=== PATIENT | female | born 2005 | race Caucasian/White ===

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

== ENCOUNTER 2024-04-13 16:30 | Emergency (ER) | payer BC, SELFPAY ==
--- NOTE | 2024-04-13 16:32 | ED.ABDPAIN ---
HPI - Abdominal Pain General Chief Complaint: Abdominal Pain Stated Complaint: pains both sides of stomach Time Seen by Provider: 04/13/24 16:32 Source: patient Mode of arrival: ambulatory Limitations: no limitations History of Present Illness HPI narrative: Britta is a 18-year-old female presents to the clinic today with complaints of abdominal pain x1 day. She describes the pain as sharp and stabbing in the left lower quadrant. She in its to anorexia and bloating, but denies any associated nausea, vomiting, diarrhea, constipation, urinary symptoms, or flank pain. MD elicited complaint: abdominal pain Related Data Allergies Allergy/AdvReac Type Severity Reaction Status Date / Time Penicillins Allergy Severe Swelling Verified 04/13/24 16:34 of Lip/Tongue/Throat Review of Systems Review of Systems: Pertinent positives per HPI. Patient denies any rash, headache, visual changes, dizziness, cough, runny nose, sore throat, shortness of breath, chest pain, palpitations, nausea, vomiting, diarrhea, constipation, or any urinary issues. PMFSH Past Medical History Medical History Schizophrenia Surgical History Surgical History No pertinent past surgical history Social History Social History Substance use type: does not use Comments At the time of my signature, I reviewed and agree with the nursing past medical, surgical, social, and family history. There is no relevant family history pertinent to the patient complaint. Exam Narrative: General: Well-developed, obese, acutely ill-appearing Head: Normocephalic, atraumatic. Cardio: Regular rate and rhythm, s1 and s2 normal, no murmur appreciated. Resp: Clear to auscultation bilaterally, no rhonchi, rales, wheezing or rubs. Abdomen: Soft, pliable, bowel sounds present in all quadrants, tenderness to palpation in the RUQ, LUQ, and LLQ, no organomegly Course Course Emergency Course: Portions of this record may have been created with voice recognition software. Level of Care: Express Care Visit Vital Signs Vital signs: Vital signs reviewed Transfer Transfered to: [facility] Transportation: Other (private car) Transfer rationale: LUQ,LLQ,RUQ abdomen pain, low grade fever, decrease appetite. R/o appy/diverticulitis Accepting physician: Susannah CALLAHAN Transfer comments: private car MDM - Abdominal Pain MDM Narrative Medical decision making narrative: At the time of visit patient is resting comfortably on the exam table. Patient appears to be nontoxic. Plan: I suspect the patient has appendicitis vs. diverticulitis vs. abdominal abscess vs. ovarian cyst rupture. I will refer the patient to the emergency department. Contacted [facility] and spoke to LONDON Davalos and she accepts patient for transfer. Supportive measures were discussed with the patient and they voiced understanding discharge instructions and agrees to treatment plan. Differential Diagnosis Differential diagnosis: Likely abdominal pain, acute appendicitis, calculus of kidney, diverticulitis, endometriosis, gastroenteritis, pancreatitis and small bowel obstruction Discharge Plan Discharge Clinical Impression: Generalized abdominal pain Patient Disposition: Acute Care Hospital Condition: Stable Prescriptions: No Action ondansetron 4 mg tablet,disintegrating 4 mg PO Q8H PRN (Reason: nausea and vomiting) Qty: 8 0RF Follow-up/Referrals: PHYSICIAN,ELEMENT[employer]CHO[employer] LIBRARIAN [Primary Care Provider] - Time of Disposition: 16:59 Quality NIHSS Nursing Documentation ED NIHSS nursing documentation: reviewed/agree
[2024-04-13 16:44] VITALS: BP 136/95; PULSE 121; RESP 16; TEMP 37.8; O2SAT 99
== END 2024-04-13 16:59 | disposition short-term general hospital (02) ==
PROVIDERS: Emergency Provider Nurse Practitioner Family
DX: R10.84 Generalized abdominal pain (principal)
CPT/HCPCS: 99212; G0463

== ENCOUNTER 2024-04-13 17:17 | Emergency (ER) | payer BC, SELFPAY ==
--- NOTE | ~2024-04-13 | CT_ITS ---
EXAMINATION: CT abdomen pelvis w con DATE: 04/13/2024 23:17 INDICATION: LLQ TTP (as well as RUQ); c/f diverticulitis TECHNIQUE: Computed tomography (CT) of the abdomen and pelvis was performed with 100 mL Omnipaque-350 intravenous contrast. Automated exposure control and iterative reconstruction technique were employe d. The dose-length product was 661.49 mGy-cm. COMPARISON: None. FINDINGS: Lower thorax: Unremarkable Liver: Normal. Biliary/Gallbladder: Gallbladder is normal. No bile duct dilation. Pancreas: No mass or duct dilation. Spleen: Normal. Adrenals:No mass. Kidneys: No suspicious mass, obstructing stone, or hydronephrosis subtle patchy areas of hypoenhancem ent in the bilateral kidneys. GI tract: No small or large bowel dilation. Normal appendix. Diverticulosis without diverticulitis. Mesentery/Peritoneum: No ascites, mass, or free air. Retroperitoneum: No mass. Pelvis: Partially distended urinary bladder. Retroverted uterus. Normal bilateral ovaries. Left corpu s luteal cyst. Soft Tissues: Soft tissues and body wall unremarkable. Bones: No acute osseous finding. IMPRESSION: Subtle patchy areas of hypoenhancement in the bilateral kidneys, may represent an arthritis in the ap propriate clinical context. Otherwise, no acute abdominopelvic process detected. Reviewed, dictated and finalized at location K. IMPRESSION: Subtle patchy areas of hypoenhancement in the bilateral kidneys, may represent an arthritis in the appropriate clinical context. Otherwise, no acute abdominopelvic process detected.
[2024-04-13 18:16] VITALS: BP 143/97; PULSE 100; RESP 20; O2SAT 100
--- NOTE | 2024-04-13 18:17 | ED.ABDPAIN ---
HPI - Abdominal Pain General Chief Complaint: Abdominal Pain <Britta Baxter PA-C - Last Filed: 04/22/24 15:16> Stated Complaint: abd pain <Britta Baxter PA-C - Last Filed: 04/22/24 15:16> Time Seen by Provider: 04/13/24 18:18 <Britta Baxter PA-C - Last Filed: 04/22/24 15:16> Focused HPI: This is a 18-year-old female that presents to the emergency department for left-sided abdominal pain. Ongoing since yesterday. Associated with fevers. Denies vomiting, diarrhea, dysuria, hematuria. GENERAL: Well-appearing, well-nourished, and in no acute distress. HEAD: Normocephalic, atraumatic. CHEST: Clear to auscultation. ?No respiratory distress. HEART: Regular rate and rhythm.? NEURO: ?Alert and oriented x3. Patient screened in triage and initial orders placed.? ?Additional care and disposition to be based upon?diagnostic testing and treatment. <Britta Baxter PA-C - Last Filed: 04/22/24 15:16> Source: patient, RN notes reviewed (reviewed provider communication from ) and other (boyfriend) <Georgia Nelson MD - Last Filed: 04/16/24 05:08> Mode of arrival: ambulatory <Georgia Nelson MD - Last Filed: 04/16/24 05:08> Limitations: no limitations <Georgia Nelson MD - Last Filed: 04/16/24 05:08> History of Present Illness HPI narrative: Symptoms started yesterday and have progressively been getting worse. Went to [facility] where temp was 100F and HR was 124. Had been complaining there of LUQ, LLQ, and RUQ pain. Fevers and chills yesterday. Here, reports LLQ pain. Has not yet taken anything for pain . Also having right flank pain. Denies any dysuria, hematuria, urgency or frequency. YO was this morning. No appetite. LBM was this morning, no diarrhea, constipation, blood. No nausea or vomiting. This has never happened before. Does not follow with a GI doctor, no prior colonoscopy. Not on anticoagulation. LMP 2 weeks ago ;it lasted 4 days which was abnormal for her though has been the duration of her menses for the last several months. No vaginal discharge or bleeding. . <Georgia Nelson MD - Last Filed: 04/16/24 05:08> Related Data Allergies/Adverse Reactions: Allergies Allergy/AdvReac Type Severity Reaction Status Date / Time Penicillins Allergy Severe Swelling Verified 04/19/24 11:55 of Lip/Tongue/Throat <Britta Baxter PA-C - Last Filed: 04/22/24 15:16> Review of Systems Review of Systems: CONSTITUTIONAL: Reports fever GASTROINTESTINAL: Reports abdominal pain. Denies nausea, vomiting, or diarrhea. GENITOURINARY: Denies dysuria <Britta Baxter PA-C - Last Filed: 04/22/24 15:16> All systems reviewed & are unremarkable except as noted in HPI and below <Britta Baxter PA-C - Last Filed: 04/22/24 15:16> PMFSH Past Medical History Medical History: Medical History Schizophrenia <Britta Baxter PA-C - Last Filed: 04/22/24 15:16> Surgical History Surgical History: Surgical History No pertinent past surgical history <Britta Baxter PA-C - Last Filed: 04/22/24 15:16> Social History Social History: Social History Substance use type: does not use <Britta Baxter PA-C - Last Filed: 04/22/24 15:16> Exam Const: General: healthy appearing, no acute distress and alert; No confusion, diaphoretic or ill appearing <Georgia Nelson MD - Last Filed: 04/16/24 05:08> Nutritional Appearance: well nourished <Georgia Nelson MD - Last Filed: 04/16/24 05:08> Orientation/consciousness: patient oriented x3 <Georgia Nelson MD - Last Filed: 04/16/24 05:08> Limitations: no limitations <Georgia Nelson MD - Last Filed: 04/16/24 05:08> HENMT: Head: normal to inspection <Georgia Nelson MD - Last Filed: 04/16/24 05:08> Other: g
[2024-04-13 18:20] VITALS: TEMP 36.9
[2024-04-13 19:53] VITALS: BP 119/70; PULSE 76; RESP 18; TEMP 36.5; O2SAT 100
[2024-04-13 20:04] LABS: BEDSIDEPREGUCG Negative
[2024-04-13 20:12] LABS: Basophils Percent Auto 0.4 % (0.2-1.2); Eosinophils Absolute Auto 0.1 K/mm3 (0-0.3); Eosinophils Percent Auto 0.6 % (0-4.4); Hemoglobin 13.3 g/dL (12.0-15.0); Immature Granulocyte Absolute 0.02 K/mm3 (0.00-0.031); Immature Granulocyte Percent A 0.2 % (0-0.5); Lymphocytes Absolute Auto 2.04 K/mm3 (0.9-3.2); Lymphocytes Percent Auto 20.3 % (18.3-44.2); Mean Corpuscular HGB Conc 34.1 g/dl (32-36); Mean Corpuscular Hemoglobin 31.3 pg (26-34); Mean Corpuscular Volume 91.8 fl (80-100); Mean Platelet Volume 9.1 fl (7.4-10.4); Monocytes Absolute Auto 0.6 K/mm3 (0.1-0.6); Monocytes Percent Auto 6.4 % (2.6-8.5); Neutrophils Absolute Auto 7.3 K/mm3 (1.3-6.7); Neutrophils Percent Auto 72.1 % (45.5-73.1); Platelet Count Result 395 k/mm3 (150-375); Red Blood Count 4.25 M/mm3 (4.2-5.4); Red Cell Distribution Width 12.1 % (11.5-14.5); White Blood Count 10.1 K/mm3 (4.5-10.0)
[2024-04-13 20:22] LABS: Alanine Aminotransferase 14 U/L (6-35); Albumin Level 4.7 g/dL (3.7-5.6); Alkaline Phosphatase 62 U/L (45-116); Anion Gap 13 mmol/L (4-12); Aspartate Amino Transferase 19 U/L (14-36); Bilirubin,Total 0.5 mg/dL (0.2-1.3); Blood Urea Nitrogen 11 mg/dL (8-21); Calcium 9.4 mg/dL (8.9-10.7); Carbon Dioxide 21 mmol/L (22-30); Chloride 103 mmol/L (98-107); Estimated CRCL calculation 125 ml/min; Estimated Glomerular Filt Rate > 60; Glucose 87 mg/dL (65-110); Lipase 22 U/L (23-300); Potassium 3.8 mmol/L (3.4-5.0); Sodium 137 mmol/L (134-143)
[2024-04-13 20:43] LABS: Appearance Urine Cloudy (Clear); Bacteria Urine 1+ /hpf; Bilirubin Urine 1+ (Negative); Blood Urine Negative (Negative); Color Urine Orange (Yellow); Glucose Urine UA Negative (Negative); Ketones Urine Negative (Negative); Leukocyte Esterase Ur 1+ LEU/UL (Negative); Need Manual Microscopic Reviewed; Nitrate Urine Positive (Negative); Non Pathogenic Casts 0-2; Protein Urine Trace mg/dL (Negative); Specific Grav Ur 1.018 (1.001-1.035); Squamous Epithelial Cell Urine Few /hpf (Few); WBC Urine 0-5 /hpf (0-3)
[2024-04-13 20:49] LABS: Add Urine Microscopic? YES
[2024-04-13 21:57] VITALS: BP 129/82; PULSE 86; RESP 19; TEMP 37.6; O2SAT 98
[2024-04-13] MEDS: MORPHINE SULFATE (*CRX) 4 MG/ML INJ IV PUSH (23:03)
[2024-04-13] MEDS: SODIUM CHLORIDE 0.9% IV 1,000 ML 999 ML IV CONT (23:03)
[2024-04-13] MEDS: ACETAMINOPHEN 500 MG TABLET 1000 MG PO (23:04)
[2024-04-13 23:59] VITALS: BP 127/59; PULSE 81; RESP 16; O2SAT 100
[2024-04-14 00:51] VITALS: PULSE 66; RESP 18; O2SAT 99
[2024-04-14] MEDS: SULFAMETHOXAZOLE/TRIMETHOPRIM 800/160 MG DS TABLET 1 TAB PO (00:51)
== END 2024-04-14 01:01 | disposition home or self-care (01) ==
PROVIDERS: Physician Assistant; Emergency Provider Student in an Organized Health Care Education/Training Program
DX: N39.0 Urinary tract infection, site not specified (principal); D75.839 Thrombocytosis, unspecified
CPT/HCPCS: 36415; 74177; 80053; 81001; 81025; 83690; 85025; 96361; 96374; 99284; A9270; J2270; J7030; Q9967

== ENCOUNTER 2024-04-19 11:48 | Emergency (ER) | payer BC, SELFPAY ==
[2024-04-19 11:52] VITALS: BP 151/96; PULSE 114; RESP 18; TEMP 36.3; O2SAT 100
--- NOTE | 2024-04-19 12:45 | ECG_ITS ---
Test Date: 2024-04-19 13:10:03 Measurements Intervals [place] Rate: 79 P: 3 OK: 150 QRS: 2 QRSD: 92 T: 12 QT: 360 QTc: 415 Interpretive Statements SINUS RHYTHM NORMAL ELECTROCARDIOGRAM No previous ECG available for comparison Electronically Signed On 04-20-2024 11:01:32 CDT by Rodney Bennett M.D.
[2024-04-19 12:46] VITALS: BP 119/80; PULSE 74; RESP 17; O2SAT 99
[2024-04-19] MEDS: SODIUM CHLORIDE 0.9% IV 1,000 ML 999 ML IV CONT (13:10)
[2024-04-19] MEDS: KETOROLAC 15 MG/ML VIAL (*BKC) IV PUSH (13:11)
[2024-04-19] MEDS: ACETAMINOPHEN 500 MG TABLET 1000 MG PO (13:11)
[2024-04-19 13:12] LABS: Basophils Percent Auto 0.7 % (0.2-1.2); Eosinophils Absolute Auto 0.1 K/mm3 (0-0.3); Hematocrit 39.2 % (37.0-47.0); Hemoglobin 13.3 g/dL (12.0-15.0); Immature Granulocyte Absolute 0.01 K/mm3 (0.00-0.031); Immature Granulocyte Percent A 0.2 % (0-0.5); Lymphocytes Absolute Auto 1.64 K/mm3 (0.9-3.2); Lymphocytes Percent Auto 27.9 % (18.3-44.2); Mean Corpuscular HGB Conc 33.9 g/dl (32-36); Mean Corpuscular Hemoglobin 31.3 pg (26-34); Mean Corpuscular Volume 92.2 fl (80-100); Mean Platelet Volume 9.2 fl (7.4-10.4); Monocytes Absolute Auto 0.5 K/mm3 (0.1-0.6); Neutrophils Absolute Auto 3.6 K/mm3 (1.3-6.7); Neutrophils Percent Auto 61.2 % (45.5-73.1); Platelet Count Result 395 k/mm3 (150-375); Red Blood Count 4.25 M/mm3 (4.2-5.4); Red Cell Distribution Width 12.1 % (11.5-14.5); White Blood Count 5.9 K/mm3 (4.5-10.0)
[2024-04-19 13:20] LABS: Glucose Point of Care 89 mg/dl (65-105)
[2024-04-19 13:23] LABS: Alanine Aminotransferase 13 U/L (6-35); Albumin Level 5.1 g/dL (3.7-5.6); Alkaline Phosphatase 56 U/L (45-116); Anion Gap 13 mmol/L (4-12); Aspartate Amino Transferase 19 U/L (14-36); Bilirubin,Total 0.4 mg/dL (0.2-1.3); Blood Urea Nitrogen 8 mg/dL (8-21); Calcium 9.6 mg/dL (8.9-10.7); Carbon Dioxide 24 mmol/L (22-30); Chloride 102 mmol/L (98-107); Estimated CRCL calculation 109 ml/min; Estimated Glomerular Filt Rate > 60; Glucose 92 mg/dL (65-110); Lipase 27 U/L (23-300); Sodium 139 mmol/L (134-143)
--- NOTE | 2024-04-19 13:32 | ED.GENADULT ---
HPI - General Adult General Chief complaint: Abdominal Pain Stated complaint: right flank Time Seen by Provider: 04/19/24 12:25 History of Present Illness HPI narrative: This is a 18 year old female presenting ED right-sided back and flank pain. Patient was seen here 5 days ago given a presumptive diagnosis of pyelonephritis based off a subtle CT finding. She was discharged on Bactrim which she has been taking once a day instead of twice a day. She has intermittently been having the right flank pain Since then. She describes it as a feeling of being punched, it is nonradiating moderate in intensity comes and goes. It is improved with Tylenol and worse with movement. She still notes that she does not have dysuria but has urinary urgency and frequency. Patient denies fevers chills nausea vomiting or diarrhea. Related Data Allergies Allergy/AdvReac Type Severity Reaction Status Date / Time Penicillins Allergy Severe Swelling Verified 04/19/24 11:55 of Lip/Tongue/Throat PMFSH Past Medical History Medical History Schizophrenia Surgical History Surgical History No pertinent past surgical history Social History Social History Substance use type: does not use Exam Narrative: APPEARANCE: No apparent distress. Head: atraumatic. EYES: EOMI, NOSE: Atraumatic NECK: Trachea midline RESPIRATORY: No increased rate of breathing clear to auscultation CARDIOVASCULAR: RRR, ABDOMINAL: Non-distended, soft nontender no guarding rebound no CVA tenderness MUSCULOSKELETAl: No obvious deformities , NEURO: Alert. Moving 4/4 extremities SKIN:: Warm, dry. Normal color PSYCHIATRIC: Normal affect Course Vital Signs Vital signs: Vital Signs Temperature 97.4 F L 04/19/24 11:52 Pulse Rate 114 H 04/19/24 11:52 Respiratory Rate 18 04/19/24 11:52 Blood Pressure 151/96 H 04/19/24 11:52 Pulse Oximetry 100 04/19/24 11:52 Oxygen Delivery Room Air 04/19/24 11:52 Temperature 97.4 F L 04/19/24 11:52 Pulse Rate 74 04/19/24 12:46 Respiratory Rate 17 04/19/24 12:46 Blood Pressure 119/80 04/19/24 12:46 Pulse Oximetry 99 04/19/24 12:46 Oxygen Delivery Room Air 04/19/24 11:52 Medical Decision Making [facility] Narrative Medical decision making narrative: -Course: 18-year-old female presenting with intermittent right flank pain. Patient had a presumptive diagnosis of pyelonephritis several days ago. She is taking half of the antibiotics required however her urine is completely clear today. No cultures were sent on last visit. Her pain is worse with movement possiblly MSK pain. Patient improved with Tylenol and Toradol. Patient has been instructed to finish her antibiotics, take Motrin Tylenol for pain and then follow up with her primary care physician for further management. -DDX includes but is not limited to: Pyelonephritis, MSK pain, kidney stone -Co-morbidities complicating care: schizophrenia -Independent interpretation of studies:labs normal. Urine without signs of infection or blood. -Interventions: Tylenol Toradol, 2 L normal saline -Shared decision making / Disposition: discharged -RX some Motrin Tylenol Vital Signs Vital Signs: Vital Signs Temperature 97.4 F L 04/19/24 11:52 Pulse Rate 114 H 04/19/24 11:52 Respiratory Rate 18 04/19/24 11:52 Blood Pressure 151/96 H 04/19/24 11:52 Pulse Oximetry 100 04/19/24 11:52 Oxygen Delivery Room Air 04/19/24 11:52 Temperature 97.4 F L 04/19/24 11:52 Pulse Rate 74 04/19/24 12:46 Respiratory Rate 17 04/19/24 12:46 Blood Pressure 119/80 04/19/24 12:46 Pulse Oximetry 99 04/19/24 12:46 Oxygen Delivery Room Air 04/19/24 11:52 Lab Data 04/19/24 13:07 04/19/24 13:07 Labs: Lab Results 04/19/24 08/0
[2024-04-19 13:42] LABS: BEDSIDEPREGUCG Negative
[2024-04-19 14:02] LABS: Add Urine Microscopic? NO; Appearance Urine Clear (Clear); Bilirubin Urine Negative (Negative); Blood Urine Negative (Negative); Color Urine Yellow (Yellow); Glucose Urine UA Negative (Negative); Ketones Urine Negative (Negative); Leukocyte Esterase Ur Negative LEU/UL (Negative); Nitrate Urine Negative (Negative); Protein Urine Negative (Negative); Specific Grav Ur 1.005 (1.001-1.035); Urobilinogen Urine 0.2 mg/dL (<2.0)
[2024-04-19 15:23] VITALS: BP 129/70; PULSE 86; RESP 18; O2SAT 100
== END 2024-04-19 15:25 | disposition home or self-care (01) ==
PROVIDERS: Emergency Provider Emergency Medicine
DX: M54.9 Dorsalgia, unspecified (principal); Z79.2 Long term (current) use of antibiotics
CPT/HCPCS: 36415; 80053; 81003; 81025; 82948; 83690; 85025; 93005; 96361; 96374; 99284; A9270; J1885; J7030